=== PATIENT | female | born 1990 | race Caucasian/White ===

== ENCOUNTER 2018-11-30 21:47 | Emergency (ER) | payer OTHER ==
[~2018-11-30] VITALS: Ht 162.6 cm; Wt 82.7 kg
[~2018-11-30 21:47] MED LIST: PREN1TAB17 PO
[2018-11-30 22:02] VITALS: BP 104/74; PULSE 90; RESP 18; Ht 162.6 cm; Wt 82.7 kg
[2018-11-30] MEDS ORDERED: KETOROLAC 30 MG INJ IM STA (23:50)
--- NOTE | 2018-11-30 23:50 | ERD ---
ER Documentation Chief Complaint Chief Complaint L ankle swelling/pain after rolling ankle 30 minutes ago HPI This is a 27-year-old female presents emergency department with complaints of l eft ankle/foot pain started 30 minutes prior to arrival here in the emergency department. Stated that she was walking in the sidewalk when she accidentally tripped, rolled her left ankle. LMP: November 14, 2017. G1, . Denies headache, head injury, loss of consciousness, dizziness, neck pain, neck stiffness, throat pain, difficulty swallowing, difficulty breathing lying flat, shoulder pain, chest pain, back pain, abdominal pain, nausea, vomiting, constipation, diarrhea, urinary symptoms, or possibility being , loss of bowel and bladder control, difficulty walking due to pain, numbness or tingling sensation, calf pain, recent travel, recent major surgery in the last 3 weeks, calf pain, recent long travel, recent exposure to any illness, recent antibiotic use in the last 3 months, fever, chills, seizures. Past medical history: Denies. Surgical history: Cholecystectomy. Social: Denies smoking, use of alcoholic beverages, use of illegal drugs. ROS All systems reviewed and are negative except as per history of present illness. Medications Home Meds Active Scripts Ibuprofen* (Motrin*) 800 Mg Tab, 800 MG PO Q8 PRN for PAIN AND OR ELEVATED TEMP, #30 TAB Prov:NATHAN EDWARDS 12/01/18 Ranitidine Hcl* (Zantac*) 150 Mg Tablet, 150 MG PO BID PRN for EPIGASTRIC PAIN, #30 TAB Prov:VINITA ODOM PA-C 09/29/18 Ranitidine Hcl* (Zantac*) 150 Mg Tablet, 150 MG PO BID PRN for EPIGASTRIC PAIN, #30 TAB Prov:MACRINA,MAGGY 01/07/18 Ibuprofen* (Motrin*) 400 Mg Tab, 400 MG PO Q6, #30 TAB Prov:MACRINA,MAGGY 18 Sodium Chloride (Saline Nasal Mist) 126 Ml Mist, 2 SPRAY NASAL Q2H PRN for NASAL CONGESTION, #1 BOTTLE Prov:ANTHONY MCLAIN NP 05/20/17 Albuterol Sulfate* (Ventolin HFA*) 18 Gm Hfa.aer.ad, 2 PUFF INHALATION Q4H, #1 INHALER Prov:ANTHONY MCLAIN NP 05/20/17 Guaifenesin* (Robitussin*) 100 Mg/5 Ml Syrup, 200 MG PO Q4H PRN for COUGH, #120 ML Prov:ANTHONY MCLAIN. WILDLIFE CONSERVATIONIST 05/20/17 Ibuprofen* (Motrin*) 800 Mg Tab, 800 MG PO Q6H PRN for PAIN AND OR ELEVATED TEMP, #30 TAB Prov:ANTHONY MCLAIN. WILDLIFE CONSERVATIONIST 05/20/17 Ibuprofen* (Motrin*) 600 Mg Tab, 600 MG PO Q6H PRN for PAIN AND OR ELEVATED TEMP, #15 TAB Prov:EMILE VASQUEZ MD 02/06/16 Magaldrate/Simethicone* (Mylanta*) 355 Ml Susp, 30 ML PO QID PRN for GASTROINTESTINAL UPSET, #1 BOTTLE Prov:LYDIA LIRA WILDLIFE CONSERVATIONIST 06/27/15 Omeprazole* (Omeprazole*) 20 Mg Capsule.dr, 20 MG PO DAILY, #30 CAP Prov:LYDIA LIRA NP 06/27/15 Ibuprofen* (Motrin*) 400 Mg Tab, 400 MG PO Q6H PRN for PAIN AND OR ELEVATED TEMP, #30 TAB Prov:LYDIA LIRA NP 06/27/15 Sodium Chloride/Sod Bicarb (Nasa Mist Saline [place]) 75 Ml [place], 2 SPRAYS NASAL BID, #1 BOTTLE Prov:JENNIFER VARGHESE I. WILDLIFE CONSERVATIONIST 05/05/15 Nitrofurantoin Monohyd Macrocr* (Macrobid*) 100 Mg Capsr, 100 MG PO BID for 3 Days, CAP Prov:JENNIFER VARGHESE I. WILDLIFE CONSERVATIONIST 05/05/15 Ibuprofen* (Ibuprofen*) 400 Mg Tablet, 400 MG PO Q6H PRN for PAIN, #30 TAB Prov:PAULO ESPARZA PA-C 04/26/15 Fluticasone Propionate (Flonase Allergy Relief) 9.9 Ml [place].susp, 1 SPRAY NASAL BID, #1 BOTTLE TO EACH NOSTRIL Prov:PAULO ESPARZAC 04/23/15 Acetaminophen-Codeine* (Acetaminophen-Cod #3*) 300-30 Mg Tab, 2 TAB PO Q4H PRN for PAIN, #20 TAB Prov:PAULO ESPARZA PA-C 04/23/15 Levofloxacin* (Levaquin*) 500 Mg Tablet, 500 MG PO DAILY for 10 Days, TAB Prov:PAULO ESPARZA PA-C 04/23/15 Ondansetron Hcl* (Zofran* ODT) 4 mg -ODT Tab.disper, 4 MG PO Q4H PRN for NAUSEA AND OR VOMITING, #20 TAB Prov:MCFARLANE,JEFFERY ELEAZAR 04/08/15 Sulfamethoxazole-Trimethoprim* (Bactrim* DS) 800-160 Mg Tab, 1 TAB PO BID for 5 Days, TAB Prov:JEFFERY MCFARLANE PA-C 04/08/15 Reported Medications Levothyroxine Sodium* (Synthroid*) Unknown Strength Tablet, PO BEFORE BREAKFAST, #30 TAB 06/27/15 Allergies Allergies: Coded Allergies: Penicillins (Verified Allergy, Unknown, 01/06/18) tetracycline (Verified Allergy, Unknown, 01/06/18) PMhx/Soc History of Surgery: Yes (Cholecystectomy and stent removal) Anesthesia Reaction: No Hx Neurological Disorder: No Hx Respiratory Disorders: Yes (PNA) Hx Cardiac Disorders: No Hx Psychiatric Problems: No Hx Miscellaneous Medical Probl: No Hx Alcohol Use: No Hx Substance Use: No Hx Tobacco Use: No Smoking Status: Never smoker Physical Exam Vitals Physical Exam Const: No acute distress Head: Atraumatic Eyes: Normal Conjunctiva ENT: Normal External Ears, Nose and Mouth. Neck: Full range of motion. No meningismus. Resp: Clear to auscultation bilaterally Cardio: Regular rate and rhythm, no murmurs Abd: Soft, non tender, non distended. Normal bowel sounds Skin: No petechiae or rashes Back: No midline or flank tenderness Ext: No cyanosis, or edema. Left ankle: Mild swelling. No obvious deformity. Good and full range of motion but with pain. Left foot: Tenderness to palpation to dorsal area. No obvious deformity. No obvious swelling. Left pedal pulses within normal limits. Left knee is unremarkable. Bilateral hips are stable and unremarkable. Right lower extremity is unremarkable. Capillary feels to bilateral lower extremities are less than 2 seconds. No neurovascular deficit. Neur: Awake and alert. No neurological deficit. Psych: Normal Mood and Affect Results 24 hrs Laboratory Tests Test 11/30/18 23:55 POC Beta HCG, Qualitative NEGATIVE Current Medications Medications Dose Sig/Antolin Start Time Status Last (Trade) Ordered Route PRN Stop Time Admin Dose Reason Admin Ketorolac 30 mg ONCE STAT 11/30/18 DC 12/01/18 Tromethamine IM 23:50 00:03 (Toradol) 11/30/18 23:52 1 tab ONCE ONCE 12/01/18 DC 12/01/18 Acetaminophen PO 00:00 00:02 / 12/01/18 00:01 Hydrocodone Bitart (Hemet (5/325)) Procedures/MDM Diagnostic tests: POC urine : Negative. X-ray of the left ankle: No acute fracture. X-ray of the left foot: No acute fracture. Treatment: Toradol IM. [place] p.o. Lul wrap. Crutches with crutch training was provided by EMT. Re-evaluation: No neurovascular deficits prior to and after the application of Lul wrap. Differential diagnosis I have low suspicion for displaced fracture, compartment syndrome, Lisfranc fracture. Final diagnosis: Left ankle sprain. Prescription: Motrin. Follow-up with PCP in the next 24-48 hours. Come back here in the emergency department for any new symptoms or any worsening symptoms. All questions and concerns were answered. Patient and family members verbalized understanding and agreed with plan of care. Hemodynamically stable on discharge. Departure Diagnosis: Primary Impression: Ankle sprain Additional Impressions: Ankle injury Foot contusion Condition: Stable Additional Instructions: Follow-up with PCP in the next 24-48 hours. Come back here in the emergency department for any new symptoms or any worsening symptoms. NATHAN EDWARDS Nov 30, 2018 23:50
[2018-12-01] MEDS ORDERED: HYDROCODONE/APAP (5/325) TAB PO ONE
== END 2018-12-01 01:30 | disposition home or self-care (01) ==
LOC: FTE 21:47 → MERGE 21:47 → FTE 12-01 01:30
DX: S93.402A Sprain of unspecified ligament of left ankle, initial encounter (principal); S90.32XA Contusion of left foot, initial encounter; W18.40XA Slipping, tripping and stumbling without falling, unspecified, initial encounter; Y92.480 Sidewalk as the place of occurrence of the external cause
CPT/HCPCS: 73610; 73630; 81025; J1885; Z7610; 96372

== ENCOUNTER 2018-12-24 12:27 | Emergency (ER) | payer OTHER ==
[~2018-12-24] VITALS: Ht 154.9 cm; Wt 81.8 kg
[2018-12-24 12:37] VITALS: BP 134/88; PULSE 77; RESP 20; Ht 154.9 cm; Wt 81.8 kg
== END 2018-12-24 12:55 | disposition home or self-care (01) ==
LOC: E/R 12:27 → MERGE 12:27 → E/R 12:55
DX: R07.89 Other chest pain (principal)
CPT/HCPCS: 93005